=== PATIENT | female | born 1975 | race Caucasian/White ===

== ENCOUNTER 2017-12-16 11:00 | Emergency (ER) | payer SELFPAY ==
[2017-12-16 11:01] VITALS: BP 156/101; PULSE 80; RESP 12; TEMP 36.8; O2SAT 100; BMI 26.8
--- NOTE | 2017-12-16 11:17 | EKG12_ITS ---
Test Reason : CHEST PAIN Blood Pressure : / mmHG Vent. Rate : 071 BPM Atrial Rate : 071 BPM P-R Int : 140 ms QRS Dur : 078 ms QT Int : 384 ms P-R-T Axes : 077 028 050 degrees QTc Int : 417 ms Normal sinus rhythm Septal infarct , age undetermined Abnormal ECG Confirmed by MILY CALVERT, DONTAE ([id number]), film or videotape editor BERENICE ESTRELLA ([id number]) on 12/18/2017 1:25:32 PM Referred By: AMBAR Confirmed By:DONTAE MINOR MD
--- NOTE | 2017-12-16 11:21 | ED.VISSUMM ---
- ER Visit Summary Date of Service: 12/16/17 Chief Complaint: Chest pressure History of Present Illness: The patient is a 42 F who states that when she woke this morning she felt very chilled. She went ahead and went to work she developed nausea without vomiting or diarrhea. States she also has developed a chest pressure for the past 15 minutes it radiates up towards the left arm. States she feels like she just cannot catch her breath. No recent surgeries immobilization or trips. No known cancers. In 7 months ago. Physical Examination: aFebrile vital signs are stable Gen: Well-nourished well-developed Head: Normocephalic atraumatic Eyes: Perrl EOMI ENT: TMs clear no rhinorrhea moist mucous membranes Neck: Supple no lymphadenopathy no JVD nontender CVS: Regular rate rhythm no murmurs normal S1-S2 Respiratory: No distress clear to auscultation bilaterally chest nontender Abdomen: Soft nontender nondistended normal bowel sounds no masses Back: Nontender Extremity: Nontender no edema Skin: Normal color no rash Neuro: alert orientated ?3 CN II-XII intact normal strength sensation reflexes gait cerebellar Psych: Normal affect normal mood Test Results: EKG demonstrates a normal sinus rhythm at a rate of 71. CBC BMP troponin d-dimer are negative. Chest x-ray showed no acute processes. Delta troponin was obtained and negative Emergency Department Course and Treatment: TANYA score of 0. Nausea was improved with Zofran. GI cocktail did not affect her chest discomfort. At this point given the above workup I think is most likely viral syndrome. Difficult to say how the next 24 hours will progress. She will return if worsening or has a concerns. I will write prescription for Zofran. Impression: 1. Viral syndrome 2. Chest pain This note was generated with [employer] dictation software. It may contain incorrect words, spelling, and punctuation that were not noted in review of the chart prior to signing ED Disposition - Plan for ED Patient: Disposition: Home or Assisted Living Chief Complaint: Chest Pain Instructions: ED Viral Syndrome Prescriptions: Ondansetron [Zofran Odt] 4 mg PO Q6H PRN PRN #10 tab PRN Reason: Nausea Referrals: Eli Xavier MD [STAFF PHYSICIAN] -
--- NOTE | 2017-12-16 11:27 | RAD_ITS ---
STUDY: X-RAY CHEST REASON FOR EXAM: Female, 42 years old. Chest pain. TECHNIQUE: PA and lateral views of the chest. COMPARISON: Prior comparison studies are not available for review at this time. FINDINGS: Cardiac monitoring leads are present. There is hyperinflation of the lungs consistent with chronic obstructive lung disease (COPD). There is no demonstrated pleural abnormality. Normal size heart. Normal mediastinum and nettie. Normal visualized pulmonary arteries. Normal visualized aortic arch and descending thoracic aorta. Normal visualized thoracic spine. Normal visualized ribs, clavicles, and shoulders. There is no demonstrated abnormality of the visualized soft tissue structures of the upper abdomen. RAD/Chest PA and Lateral IMPRESSION: No radiographic evidence of acute cardiopulmonary disease. Electronically Signed: Marge Moeller MD at 11:54 EDT , Service support ,
[2017-12-16] MEDS: Ondansetron 4 MG/2 ML Vial IV (11:29)
[2017-12-16 11:31] LABS: Absolute Lymphocyte Count 2.44 X10^3/ul (0.83-4.51); Absolute Neutrophil Count 2.9 X10^3/uL (2.0-7.7); Basophil# 0.06 X10^3/uL; Eosinophil# 0.16 X10^3/uL; Eosinophils% 2.6 % (0-5); Hematocrit 39.1 % (37-47); Hemoglobin 12.7 g/dl (12.0-15.0); Lymphocyte # 2.44 X10^3/ul (4.0); Lymphocyte % 40.1 % (19-41); Mean Corp Hgb Conc 32.5 g/gl (32-36); Mean Corpuscular Hgb 31.1 pg (27.0-32.0); Mean Corpuscular Volume 95.6 fL (81-99); Mean Platelet Vol. 10.4 fl (6.2-12.0); Monocyte# 0.52 X10^3/uL; Monocyte% 8.6 % (0-10); Neutrophil # 2.89 X10^3/uL (2.7-7.7); Neutrophil % 47.5 % (47-70); Platelet Count 243 K/mm3 (150-450); RBC Distribution Width CV 14.9 % (11.6-14.6); RBC Distribution Width SD 51.2 fl (35.1-43.9); Red Blood Count 4.09 M/mm3 (4.2-5.4); White Blood Count 6.1 K/mm3 (4.4-11.0)
[2017-12-16 11:32] LABS: POSITIVE COUNT NO; POSITIVE DIFFERENTIAL NO; POSITIVE MORPHOLOGY NO
[2017-12-16 11:40] LABS: D-Dimer Quantitative (DVT/PE) < 0.27 FEU/ug/m (0.27-0.49)
[2017-12-16 11:47] LABS: ALB/GLOB Ratio 1.2 RATIO (0.9-2.4); AST(SGOT) 13 U/L (15-37); Alanine Aminotransfer ALT/SGPT 20 U/L (13-56); Alkaline Phosphatase 65 U/L (45-117); Anion Gap 6 (5-15); BUN 7 mg/dL (7-18); Chloride 104 mmol/L (98-107); EST Glomerular Filtration Rate 98 mL/min (>60); Est Glom Filt Rate - Afr Amer 118 mL/min (>60); Estimated Creatinine Clearance 94.21 ml/min; Globulin 3.4 g/dL (2.2-4.2); Glucose 85 mg/dL (74-106); Lipase 219 U/L (73-393); Potassium 4.2 mmol/L (3.5-5.1); Protein, Total 7.4 g/dL (6.4-8.2); Sodium Level 137 mmol/L (136-145)
[2017-12-16] MEDS: Mag Hydrox/Al Hydrox/Simeth 30 ML UDC PO (12:20)
[2017-12-16 12:23] VITALS: BP 133/82; PULSE 67; RESP 14; O2SAT 97
[2017-12-16 13:33] VITALS: PULSE 66; RESP 14; O2SAT 99
[2017-12-16 14:18] VITALS: BP 124/71; PULSE 59; RESP 16; O2SAT 98
== END 2017-12-16 14:20 | disposition home or self-care (01) ==
PROVIDERS: Emergency Provider Emergency Medicine
DX: R07.89 Other chest pain (principal); B34.9 Viral infection, unspecified; R06.00 Dyspnea, unspecified; R11.0 Nausea
CPT/HCPCS: 71046; 80053; 83690; 84484; 85025; 85379; 93005; 96374; 99285; A4216; J2405

== ENCOUNTER 2019-02-24 08:44 | Day surgery (SDC) | payer OTHER, SELFPAY ==
--- NOTE | 2019-02-22 10:39 | HP.PCM_ITS ---
History and Physical Date of Admission: 02/24/19 Tricia Greer Physician ASSISTANT DEAN OF STUDENTS H&P Signed Encounter Date: 02/16/2019 Expand All Collapse All Hide copied text Flako for details Krissy Elliott is a 44 year old female who presents for complaints of heavy irregular bleeding. Patient was just seen in the office on 02/14/2019 by nurse practitioner complaining of heavy painful bleeding. Patient states she was passing large clots. Patient reports has been taking her control pill for over 3 weeks and bleeding started prior to the inactive pills. Recommendation at this time is to proceed with hysteroscopy, D&C and Celeste endometrial ablation. I discussed with the patient that we could continue hormonal options at this time but she would be a candidate for a Celeste ablation. Patient had a previous ultrasound performed which showed a very small intramural fundal fibroid but no gross endometrial lesions. Originally patient one to try hormones due to her perimenopausal symptoms with hot flashes to help control those but at this point patient is frustrated with the bleeding would like to proceed with surgical management. Patient reports last night her bleeding was so heavy she was up all night changing pads every 1-2 hours she could not even use tampons because the bleeding was so heavy it was causing her pain tip at the tampons in place. At this time the bleeding is affecting the patient's daily life. Currently patient denies any chest pain, shortness of breath, dizziness. ? PAST MEDICAL HISTORY PAST MEDICAL HISTORY Diagnosis Date ? Kidney stone ? ? PAST SURGICAL HISTORY PAST SURGICAL HISTORY Procedure Laterality Date ? PAST SURGICAL HISTORY OF ? 2010 ? Lap appendectomy ? PAST SURGICAL HISTORY OF ? ? ? Arthroscopic surgery for torn meniscus, right knee ? PAST SURGICAL HISTORY OF ? 1998 ? Tubal ligation ? TONSILLECTOMY HX ? ? ? childhood ? FAMILY HISTORY FAMILY HISTORY Problem Relation Age of Onset ? Hypertension Mother ? ? Coronary Artery Disease Father ? ? stents then CABG in 60's ? COPD Father ? ? Hyperlipidemia Father ? ? other (Atrial Fibrillation) Father ? ? Obesity Brother ? ? with KYLAH ? other (hypothyroidism) Brother ? ? Hypertension Maternal Grandmother ? ? Coronary Artery Disease Maternal Grandfather ? ? from [place] ? Coronary Artery Disease Paternal Grandmother ? ? from [place] ? Emphysema Paternal Grandfather ? ? SOCIAL HISTORY Social History ? Tobacco Use ? Smoking status: Former Smoker ? ? Last attempt to quit: 09/08/2017 ? ? Years since quittin.4 ? Smokeless tobacco: Never Used Substance Use Topics ? Alcohol use: Not on file ? Drug use: Not on file ? Levonorgestrel-Ethinyl Estrad (AVIANE) 0.1mg - 20mcg per tablet, Take 1 tablet by mouth once daily. escitalopram oxalate (LEXAPRO) 10 mg tablet, Take 1 tablet by mouth once daily. ibuprofen (MOTRIN) 600 mg tablet, Take 1 tablet by mouth every 6 hours as needed. FOR PAIN. benzonatate (TESSALON PERLES) 100 mg capsule, Take 1-2 capsules by mouth three times daily as needed. (Patient not taking: Reported on 02/16/2019 ) albuterol sulfate (PROAIR RESPICLICK) 90 mcg/actuation aepb, Inhale 1 Inhalation as instructed every 4 hours as needed. (Patient not taking: Reported on 02/16/2019 ) norethindrone (AYGESTIN) 5 mg tablet, Take one tablet TID until bleeding stops then take one tablet BID x 2 days then one tablet daily x 5 days tiZANidine (ZANAFLEX) 4 mg tablet, Take 1 tablet by mouth every 6 hours as needed. traZODone (DESYREL) 50 mg tablet, Take 1 tablet by mouth as needed. ? No current facility-administered medications for this visit. ? Allergies As of Date: 02/16/2019 Allergen Noted Reaction DIHYDROERGOTAMINE 03/04/2018 Other: See Comments ? Fully Assessed 02/16/2019 ? ? REVIEW OF SYSTEMS Abdomen: no pain Bladder: no dysuria.. Expanded ROS: GENERAL: Negative for fever Allergies and current medication updated:Yes ? EXAM: BP 112/72 Wt 170 lb (77.1kg) LMP 02/13/2019 ? GENERAL: pleasant, female in no apparent distress HEENT: Normocephalic, atraumatic, mucus membranes moist and no lesions NECK: full range of motion DERMATOLOGY: Normal, without lesions, non-icteric and non-hirsute CHEST: Clear to auscultation Normal inspiratory effort CARDIAC: regular rate and rhythm NEURO: alert and oriented x3,exam grossly non-focal EXTREMITIES: normal ? ASSESSMENT AND PLAN: Encounter Diagnosis ? ? ICD-10-CM ? 1. Abnormal uterine bleeding (AUB) N93.9 ? ? Discussed all options including continued hormonal therapy but at this time due to the heavy bleeding and do recommend proceeding with surgical intervention with a hysteroscopy D&C and Celeste ablation. Previous in vitro biopsy was benign. ? 2. Pt has been counseled on risks/benefits and alternatives of surgery including but not limited to anesthesia, bleeding, infection, uterine perforation with subsequent injury to pelvic structures including bowel, bladder, and vessels. Pt wishes to proceed with surgery at this time. 3. Post op Motrin ordered ? ? Tricia Lyon MD ?8:39 AM Office Visit on 02/16/2019
[2019-02-24] VITALS (8 sets, daily range): BP systolic 106–123; BP diastolic 75–84; PULSE 52–73; RESP 14–16; TEMP 36.4–37.1; O2SAT 95–100; BMI 29.3
[2019-02-24 09:25] LABS: Internal QC Validated? YES +Cl - CLEAR BKGD; Pregnancy, Urine Negative Negative
[2019-02-24] MEDS: Lactated Ringers 1,000 ML 100 ML IV ×2 (09:27→11:37)
[2019-02-24 09:32] LABS: Hematocrit 35.8 % (37-47); Hemoglobin 11.5 g/dL (12.0-15.0); Mean Corp Hgb Conc 32.1 g/dL (32-36); Mean Corpuscular Hgb 32.4 pg (27.0-32.0); Mean Corpuscular Volume 100.8 fL (81-99); Mean Platelet Vol. 9.7 fl (6.2-12.0); Platelet Count 268 K/mm3 (150-450); RBC Distribution Width CV 12.6 % (11.6-14.6); RBC Distribution Width SD 47.1 fl (35.1-43.9); Red Blood Count 3.55 M/mm3 (4.2-5.4); White Blood Count 5.1 K/mm3 (4.4-11.0)
--- NOTE | 2019-02-24 10:35 | EMB_PTH ---
PATIENT: HARI MODI [place] [facility] [place][id number] AGE/SX: 44/F ROOM: RE02/24/[address]: Dr. Tricia Lyon, MDDOB: 1975 BED: DIS: 02/24/2019 SPEC #: [id number] RECD: 02/24/19 12:18 STATUS: ROSA REChi #: [id number] DAVID: 02/24/19 10:[address]: Tricia Lyon DEPT: SURGICAL PATHOLOGY RECD BY: Manny Cervantes ENTERED: 02/24/19 13:07 SP TYPE: ENDOM BX/C OTHR DR: Dr. Geri Pradhan MD Tissues: Endometrium, NOS Procedures: Surgery Specimen Level IV HEADER OPERATION: Hysteroscopy, D & C, Celeste PRE-OP DIAGNOSIS: Abnormal uterine bleeding TISSUE SUBMITTED: Endometrial curettings and polyp MICROSCOPIC DIAGNOSIS Endometrial curettings and polyp: Weakly proliferative endometrium. Fragments of myometrium. Fragments of benign ecto- and endocervical epithelium. See comment. SELINA:ulysses 02/25/19 COMMENT A few of the fragments have polypoid appearance, may represent fragments of polyp. MICROSCOPIC DESCRIPTION Slides are reviewed. GROSS DESCRIPTION Received in fixative is one container labeled with the patient's name and designated endometrial curettings and polyp. The specimen consists of multiple fragments of hemorrhagic soft tissue that in aggregate measure 3 x 2.5 x 0.3 cm. The entire specimen is submitted in one cassette. / SELINA:ulysses 02/24/19 TC:5 CPT: 52607
--- NOTE | 2019-02-24 11:20 | PCM.OPRPT ---
Report of Operation Date of Procedure: 02/24/19 Pre-Operative Diagnosis: AUB Post-Operative Diagnosis: same, Endometrial polyp Description of Surgical Findings:: Small endometrial polyp noted from Right lateral uterine wall- removed prior to ablation. Ablation performed without difficulty. Type of Anesthesia:: MAC Special Medications: none Specimen's removed: endometrial curettings and endometrial polyp Drains: none Estimated Blood Loss (mL): 10 Fluids Replaced: 800 Description of Procedure: After informed consent was obtained patient taken to the operating room she is placed in supine position she is given anesthesia simply self insert she is prepped draped normal sterile fashion. Bladder was drained prior to the start of the procedure. At this time the weighted speculum was placed the posterior fornix of the vagina then a single-tooth tenaculum was used to grasp the anterior lip of the cervix. At this time the uterus was sounded to approximately 8cm the endocervical canal sounded to 4cm. Next cervix was dilated in incremental fashion. Once adequate dilatation was achieved the hysteroscope was inserted using normal saline as distention medium. On hysteroscopy there were no gross abnormalities. Both tubal ostia were visualized. At this time sharp curettaas a small endometrial polyp noted from right lateral aspect. Endometrial curettage was performed which yielded small amount of endometrial tissue and polyp. tissue will be sent to pathology for evaluation. At this time the Celeste device was opened. The Celeste was set at 4 cm. The device was activated. Prior to activation the field test was performed and cavity was intact. The device was then fired and activated for 120 seconds. Once the 120 seconds was completed the device was removed intact and the tenaculum was removed. Good hemostasis was appreciated. Weighted speculum was removed. Vaginal sweep was performed is negative. There were no complications. Anticipated normal postoperative course for this patient. Instrument and lap count were correct ?2. Grafts/Implants Used: none - Complications none - Admit VTE Documentation VTE Present on Admission: Yes VTE Mechan Device Prophylaxis: SCD's VTE Pharm Prophylaxis ordered?: No
--- NOTE | 2019-02-24 11:25 | DCINST_ITS ---
Discharge Diet: No Restrictions Discharge Activity: Return to Normal Activity, May Shower, May Take a Tub Bath - in 2 weeks. Allergies/Adverse Reactions: Allergies dihydroergotamine Allergy (Verified 02/24/19 09:10) Chest tightness DAG Allergy (Uncoded 02/24/19 09:10) Chest tightness Medications to take at Discharge Escitalopram Oxalate [Lexapro] 10 mg PO DAILY 02/21/19 Tizanidine HCl [Zanaflex] 4 mg PO Q8H PRN 02/21/19 Primary Care Physician: Geri Pradhan MD [Primary Care Provider] - Test Results: Test results from this visit will be discussed in further detail at your follow- up appointment, if applicable.
[2019-02-24] MEDS: HYDROcodone Bitartrate/Apap 5/325 Tablet PO (12:22)
== END 2019-02-24 12:49 | disposition home or self-care (01) ==
LOC: SDC 08:48 → AC 09:07
PROVIDERS: Family Provider Internal Medicine; PCP Internal Medicine; Referring Provider Obstetrics & Gynecology; Visit Provider Obstetrics & Gynecology
PROC: 0U5B8ZZ Destruction of Endometrium, Via Natural or Artificial Opening Endoscopic (ICD-10-PCS; CPT 58558; principal; 2019-02-24 10:20)
DX: N84.0 Polyp of corpus uteri (principal); N93.9 Abnormal uterine and vaginal bleeding, unspecified; Z87.891 Personal history of nicotine dependence; Z87.442 Personal history of urinary calculi
CPT/HCPCS: 58558; 36415; 81025; 85027; 88305; J7120; J2405

== ENCOUNTER 2020-02-02 14:26 | Observation (INO) | payer OTHER, SELFPAY ==
[2019-02-24 09:11] VITALS: BMI 29.3
--- NOTE | 2020-01-26 09:18 | EKG12_ITS ---
Test Reason : PRE OP Blood Pressure : / mmHG Vent. Rate : 080 BPM Atrial Rate : 080 BPM P-R Int : 146 ms QRS Dur : 076 ms QT Int : 366 ms P-R-T Axes : 069 002 028 degrees QTc Int : 422 ms Normal sinus rhythm Normal ECG Confirmed by JEFF CALVERT, ELAINA ([id number]), editor greeting card YENI TONEY ([id number]) on 01/30/2020 1:02:10 PM Referred By: Tricia Lyon Confirmed By:ELAINA AGUILAR MD
[2020-01-26 10:24] LABS: Hematocrit 41.1 % (37-47); Hemoglobin 13.3 g/dL (12.0-15.0); Mean Corp Hgb Conc 32.4 g/dL (32-36); Mean Corpuscular Hgb 32.4 pg (27.0-32.0); Mean Corpuscular Volume 100.2 fL (81-99); Mean Platelet Vol. 9.8 fl (6.2-12.0); Platelet Count 264 K/mm3 (150-450); RBC Distribution Width CV 12.9 % (11.6-14.6); RBC Distribution Width SD 47.4 fl (35.1-43.9); White Blood Count 5.1 K/mm3 (4.4-11.0)
[2020-01-26 10:46] LABS: Magnesium 2.1 mg/dL (1.6-2.6)
[2020-01-26 10:49] LABS: Anion Gap 5 (5-15); BUN 6 mg/dL (7-18); BUN/Creat Ratio 7.6 RATIO (10-20); Calcium,Total 9.1 mg/dL (8.5-10.1); Chloride 105 mmol/L (98-107); Creatinine, Serum 0.79 mg/dL (0.55-1.02); EST Glomerular Filtration Rate 84 mL/min (>60); Est Glom Filt Rate - Afr Amer 102 mL/min (>60); Glucose 85 mg/dL (74-106); Potassium 4.1 mmol/L (3.5-5.1); Sodium Level 139 mmol/L (136-145)
--- NOTE | 2020-01-31 09:48 | PCM.HP.BLA ---
History and Physical Date of Admission: 01/31/20 Tricia Greer Physician Specialty: GAMBLING MONITOR H&P Signed Encounter Date: 01/16/2020 Nola Eastone copied text Flako for details Pre-Op History and Physical ? HPI: The patient is a 45 year old female presenting for pre-operative visit. She is scheduled for TLH, Bilateral salpingectomy, cystoscopy, for AUB, Dysmenorrhea, pelvic pain, s/p endometrial ablation, suspect adenomyosis on 02/02/20. Procedure discussed along with risks, benefits and complications. Other alternatives discussed for management. Consent form signed? Yes. ? ? PAST MEDICAL HISTORY PAST MEDICAL HISTORY Diagnosis Date ? Kidney stone ? ? ? PAST SURGICAL HISTORY PAST SURGICAL HISTORY Procedure Laterality Date ? HYSTEROSCOPY, DIAGNOSTIC (SEPARATE ? 02/24/2019 ? Hysteroscopy D&C at [facility]-Dr. Greer ? PAST SURGICAL HISTORY OF ? 2010 ? Lap appendectomy ? PAST SURGICAL HISTORY OF ? ? ? Arthroscopic surgery for torn meniscus, right knee ? PAST SURGICAL HISTORY OF ? 1998 ? Tubal ligation ? THERMAL ENDOMETRIAL ABLATION ? 02/2019 ? Celeste- Dr. Greer ? TONSILLECTOMY HX ? ? ? childhood ? ? ? CURRENT MEDICATIONS Current Outpatient Medications Medication Sig Dispense Refill ? ibuprofen (MOTRIN) 200 mg tablet Take 200 mg by mouth every 6 hours as needed. ? ? ? traZODone (DESYREL) 50 mg tablet Take 1 tablet by mouth as needed. ? ? ? No current facility-administered medications for this visit. ? ? ALLERGIES: Dihydroergotamine ? PERSONAL HISTORY: SOCIAL HISTORY Social History ? Tobacco Use ? Smoking status: Former Smoker ? ? Quit date: 09/08/2017 ? ? Years since quittin.3 ? Smokeless tobacco: Never Used Substance Use Topics ? Alcohol use: Not on file ? Drug use: Not on file ? FAMILY HISTORY: FAMILY HISTORY FAMILY HISTORY Problem Relation Age of Onset ? Hypertension Mother ? ? Coronary Artery Disease Father ? ? stents then CABG in 60's ? COPD Father ? ? Hyperlipidemia Father ? ? other (Atrial Fibrillation) Father ? ? Obesity Brother ? ? with KYLAH ? other (hypothyroidism) Brother ? ? Hypertension Maternal Grandmother ? ? Coronary Artery Disease Maternal Grandfather ? ? from [place] ? Coronary Artery Disease Paternal Grandmother ? ? from [place] ? Emphysema Paternal Grandfather ? ? ? REVIEW OF SYMPTOMS: negative except as noted above PHYSICAL EXAMINATION: ? VITALS: Blood pressure 112/74, pulse 72, resp. rate 16, height 5' 5 (1.651 m), weight 189 lb (85.7 kg), last menstrual period 02/13/2019. ? GENERAL: The patient is well nourished, well hydrated in no acute distress. , The patient is oriented to time, place, and person. NECK: Full range of motion GENITALIA: deferred WET PREP: Not indicated Neuro: alert and oriented x 3 ? IMPRESSION: 45 yo s/p ablation with AUB, dysmenorrhea, pelvic pain suspect adenomyosis ? PLAN: TLH, B/l salpingectomy, cystoscopy. ? ERAS protocol reviewed Post op meds given Pt has been counseled on risks/benefits and alternatives of surgery including but not limited to anesthesia, bleeding, infection, injury to pelvic structures including bowel, bladder, ureters and vessels. Pt wishes to proceed with surgery at this time. ? Covid testing reviewed ? RESULT: Uterus size: 7.4 x 4.8 x 3.9 cm ?? ? -Orientation: Anteverted ?? ? -Myometrium: Coarsened myometrium with a hypoechoic mass within the anterior fundus slightly to the right of midline measuring 12 x 11 x 11 mm. ?? ? -Endometrial echo complex: 4.3 mm transvaginally at the fundus. ?? ? -Cervix: normal Right ovary: 2.7 x 2.5 x 2.0 cm. ?? Normal sonographic appearance. There are normal follicular changes within involuting follicle. Arterial and venous vascular flow is identified. Left ovary: 2.8 x 2.6 x 1.2 cm. ?? Normal sonographic appearance. There are normal follicular changes. Arterial and venous vascular flow is identified. Free fluid: None ? ? I have reviewed and updated past medical and surgical history, medications and allergies Tricia Greer MD ?9:18 AM Office Visit on 01/16/2020 Revision History
[2020-02-02] VITALS (17 sets, daily range): BP systolic 100–131; BP diastolic 61–81; PULSE 57–96; RESP 16; TEMP 36.1–37.5; O2SAT 94–100; BMI 31.5
[2020-02-02 07:25] LABS: Internal QC Validated? YES +Cl - CLEAR BKGD; Pregnancy, Urine Negative Negative
[2020-02-02] MEDS: Gabapentin 600 MG Tablet PO (07:28)
[2020-02-02] MEDS: Acetaminophen 500 MG Tablet 1000 MG PO ×3 (07:28→23:00)
[2020-02-02] MEDS: Phenazopyridine 95 MG Tablet 190 MG PO (07:28)
[2020-02-02] MEDS: Celecoxib 200 MG Capsule 400 MG PO (07:28)
[2020-02-02] MEDS: Enoxaparin 40 MG/0.4 ML Syringe SC (07:29)
[2020-02-02] MEDS: Scopolamine 1mg/72hr Patch 1 PATCH TRANSDERM. (07:29)
[2020-02-02] MEDS: Lactated Ringers 1,000 ML 40 ML IV ×2 (07:30→10:16)
[2020-02-02 08:01] LABS: Bedside Glucose 108 mg/dL (70-110)
--- NOTE | 2020-02-02 08:30 | HYST_PTH ---
PATIENT: HARI MODI LOC: [facility] U#:[id number] AGE/SX: 45/F ROOM: [facility] RE02/02/[address]: Dr. Tricia Lyon, MDDOB: 1975 BED: 1 DIS: 02/04/2020 SPEC #: [id number] RECD: 02/02/20 13:05 STATUS: ROSA HEENA #: [id number] DAVID: 02/02/20 08:[address]: Tricia Lyon DEPT: SURGICAL PATHOLOGY RECD BY: Megha Olsen ENTERED: 02/02/20 13:35 SP TYPE: HYSTERECT OTHR DR: Dr. Geri Pradhan MD Tissues: Uterus, NOS Procedures: Surgery Specimen Level V HEADER OPERATION: Hysterectomy, TLH, salpingectomy, cysto PRE-OP DIAGNOSIS: Dysmenorrhea, pelvic pain TISSUE SUBMITTED: Uterus, cervix, bilateral fallopian tubes MICROSCOPIC DIAGNOSIS Uterus, cervix and bilateral fallopian tubes, hysterectomy and bilateral salpingectomy: Cervix - no pathologic diagnosis. Endometrium - extensive fibrosis consistent with previous endometrial ablation. Myometrium - no pathologic diagnosis. Bilateral fallopian tubes - no pathologic diagnosis. SELINA:ulysses 02/03/20 COMMENT Please make reference to previous specimen ([id number]) endometrial curettings and polyp with diagnosis of weakly proliferative endometrium. MICROSCOPIC DESCRIPTION Slides are reviewed. GROSS DESCRIPTION Received in fixative is one container labeled with the patient's name and designated uterus, cervix and bilateral fallopian tubes. The specimen consists of a hysterectomy specimen consisting of uterus with cervix and detached bilateral fallopian tubes. The uterus with cervix weighs 80 gm and measures 7.5 x 6 x 4 cm. A focal area of defect is noted at the posterior surface of the uterus. The serosal surface is york, glistening. The ectocervical mucosa is unremarkable. The external os is oval and patulous in contour. The endocervical canal measures 2.5 cm in length and the endocervical mucosa is york, glistening and unremarkable. The endometrial cavity is narrow and elongated and measures 3.5 cm in length and up to 0.5 cm in width. A focal area of fibrosis is noted in the endometrium. No mass lesion is identified. The endometrium measures 0.1 cm in thickness. Sections of the uterine wall do not reveal any mass lesion and it measures up to 2 cm in thickness. The fallopian tubes are not identified as right or left and measures 4.5 cm in length and 0.5 cm in diameter and 6.5 cm in length and 0.5 cm in diameter. The fimbrial end is identified. The proximal portion of both fallopian tubes show a Filshie clip which appear intact. Sections reveal unremarkable cut surfaces. Crew Caller sections are submitted in eight cassettes as follows: 1 - anterior cervix, 2 - posterior cervix, 3 & 4 - anterior uterine wall, 5 & 6 - posterior uterine wall, 7 & 8 - bilateral fallopian tubes with each cassette containing one fallopian tube. / SJ:rg 02/02/20 TC:5 CPT: 45248
[2020-02-02] MEDS: Cefazolin 2 GM in 0.9% Normal Saline 100 ML IV (09:07)
[2020-02-02] MEDS: dexAMETHasone 10 MG/ML Vial 8 MG IV (09:40)
[2020-02-02] MEDS: Bupivacaine Mpf 0.5% 30 ML VIAL (09:40)
--- NOTE | 2020-02-02 10:03 | PCM.OPRPT ---
Problem List (1) Abnormal uterine bleeding (AUB) Status: Acute (2) Dysmenorrhea Status: Acute Report of Operation Date of Procedure: 02/02/20 Pre-Operative Diagnosis: Abnormal uterine bleeding. Dysmenorrhea Post-Operative Diagnosis: Same Surgery/Procedure Performed:: Diagnostic laparoscopy with visualization of sigmoid colon Type of Anesthesia:: General Description of Procedure: This is a 45 yo s/p ablation with AUB, dysmenorrhea, pelvic pain suspect adenomyosis she was undergoing a TLH, B/l salpingectomy, cystoscopy. During the process of their intra-abdominal dissection there was an area of the sigmoid colon in which Dr. Gardner and Dr. Greer had a question of whether there was a serosal injury to the sigmoid colon. Upon visualization of this I thought that this was just traumatized epiploic fat and did not represent any serosal injury whatsoever. I did not see any abnormal bleeding in the pelvis Visualization of the sigmoid colon was easily accomplished and no injury was identified. I then left the room. - Admit VTE Documentation VTE Present on Admission: No VTE Mechan Device Prophylaxis: SCD's VTE Pharm Prophylaxis ordered?: No Reason prophylaxis not ordered:: Treatment Not Indicated
--- NOTE | 2020-02-02 11:17 | PCM.OPRPT ---
Report of Operation Date of Procedure: 02/02/20 - start 929 end time 1126 Pre-Operative Diagnosis: AUB, Dysmenorrhea, history of endometrial ablation Post-Operative Diagnosis: same Surgery/Procedure Performed:: LAVH, Bilateral salpingectomy, Cystoscopy, lysis of adhesions Description of Surgical Findings:: Normal tubes, ovaries and Uterus. bilateral filshie clips present. Hernia through previous LLQ port site. Reduced. general surgery called to look at edge of serosa on Descending colon to make sure there was no interruption in serosa- Dr. Cooper agreed with finding of no injury to colon. supervisor electric: Kaela Gardner Type of Anesthesia:: General Special Medications: 1% lidocaine with Ephedirne and 0.5% Marcaine Specimen's removed: uterus, cervix, bialteral fallopain tubes Drains: none Estimated Blood Loss (mL): 50 Fluids Replaced: 1500 Description of Procedure: Patient take to OR and prepped and draped in usual sterile fashion in dorsal lithotomy position with her arms tucked in a neurologically safe and neutral position. The uterus sounded to 8cm. The acorn uterine manipulator and sanchez were placed. Attention was turned to the abdomen. All port sites were infiltrated with 0.5% marcaine before the incisions were made. The anterior abdominal wall was tented up with towel clamps and using a direct entry approach a 5 mm infraumbilical port was placed. Intraperitoneal placement was confirmed with the laparoscope and the pneumoperitoneum was created. The patient was placed in Trendelenburg and 5 mm right and left lower quadrant ports were placed under direct visualization. Hernia through previous LLQ was appreciated- Omentum was taken down. General surgery Dr. Cooper called to inspect area of descending colon - Dr. Cooper agreed there was no injury to Descending colon. once the adhesions were taken down in LLQ port area- The bowel was swept away. Ovaries appeared normal. The mesosalpinx starting at fibriated end were grasped, clamped, sealed and transected with the Ligasure. The round ligaments were divided. The anterior peritoneum was dissected down to create the bladder flap with blunt dissection and the LigaSure. The uterine arteries were isolated, clamped, sealed and cut. There was minimal back bleeding from the uterus. Attention was turned to the vaginal portion of the case. The anterior vagina was infiltrated w/ lidocaine with dilute epinephrine. An incision was made over the anterior vagina and the anterior colpotomy incision was made with blunt and sharp dissection. The lower vagina was clamped, transected and suture ligated. A second pedicle containing the peritoneum was secured with Xochitl clamps, cut and suture ligated. The uterus was brought through the anterior colpotomy incision and the uterosacral ligaments were clamped, cut and suture ligated. The pedicles were examined and were suture ligated. The specimen was handed off. The cuff was closed with interrupted 0-vicryl figure of 8 sutures. Cystoscopy was performed- bilateral ureteral jets noted and Bladder intact. The pneumoperitoneum was recreated and the cuff was evaluated. small oozing noted on cuff. Extra stitch placed from below - area still oozing- Monopolor hook used to cauterize area and a hemolock clamp was placed on posterior cuff midline at this time cuff and pedicles were hemostatic. Nghia placed over cuff. The skin incisions were closed with skin glue and 3-0 monocryl. The vaginal sweep was completed by me. Grafts/Implants Used: none Grafts/Implants Used: hemolock clip x 1 - Complications none - Admit VTE Documentation VTE Present on Admission: Yes VTE Mechan Device Prophylaxis: SCD's VTE Pharm Prophylaxis ordered?: Yes
--- NOTE | 2020-02-02 11:32 | DCINST_ITS ---
Discharge Diet: No Restrictions Discharge Activity: Return to Normal Activity, May Not Drive - while taking narcotic pain medications., May Shower May shower in (days): 1 May resume sexual activity in: 6-8 weeks Lifting Restrictions: 20 Call your doctor if your incision/area has: Continuous Slow Oozing, Sudden Increased Bleeding, Increased Pain/ Swelling, Increased Redness, Foul Smelling Discharge Call your doctor if you observe: Fever of 101 or Higher, Inability to urinate, Inability to have a bowel movement, Using more than one pad per hour Cleanse incision/area with: - - you have skin glue over incision sites- do not pick off. may let soap and water run over incision sites and dab dry. Allergies/Adverse Reactions: Allergies dihydroergotamine Allergy (Verified 01/25/20 09:55) Chest tightness DAG Allergy (Uncoded 01/25/20 09:55) Chest tightness Medications to take at Discharge NK 01/25/20 Primary Care Physician: Geri Pradhan MD [Primary Care Provider] - Test Results: Test results from this visit will be discussed in further detail at your follow- up appointment, if applicable. Please Follow Up With: Tricia Lyon MD When: 2 weeks
[2020-02-02] MEDS: Ketorolac 30 MG/ML Syringe IV ×3 (13:23→23:00)
[2020-02-02] MEDS: Ondansetron 4 MG/2 ML Vial IV (13:23)
[2020-02-02] MEDS: Lactated Ringers 1,000 ML 70 ML IV (13:37)
[2020-02-02] MEDS: oxyCODONE 5 MG Tablet PO ×2 (14:46→20:43)
[2020-02-02 17:46] LABS: Hematocrit 36.9 % (37-47); Hemoglobin 11.7 g/dL (12.0-15.0); Mean Corp Hgb Conc 31.7 g/dL (32-36); Mean Corpuscular Hgb 32.1 pg (27.0-32.0); Mean Corpuscular Volume 101.4 fL (81-99); Platelet Count 245 K/mm3 (150-450); RBC Distribution Width CV 12.9 % (11.6-14.6); Red Blood Count 3.64 M/mm3 (4.2-5.4); White Blood Count 14.5 K/mm3 (4.4-11.0)
[2020-02-02] MEDS: Docusate Sodium 100 MG Capsule PO (23:00)
[2020-02-03] VITALS (11 sets, daily range): BP systolic 103–136; BP diastolic 56–80; PULSE 55–71; RESP 16; TEMP 36.2–37; O2SAT 96–99
[2020-02-03] MEDS: oxyCODONE 5 MG Tablet PO ×4 (02:24→21:47)
[2020-02-03] MEDS: Acetaminophen 500 MG Tablet 1000 MG PO ×3 (06:21→18:38)
[2020-02-03] MEDS: Ketorolac 30 MG/ML Syringe IV ×3 (06:21→18:38)
[2020-02-03 07:02] LABS: Absolute Lymphocyte Count 1.42 X10^3/uL (0.83-4.51); Absolute Neutrophil Count 11.2 X10^3/uL (2.0-7.7); Basophil# 0.01 X10^3/uL; Basophil% 0.1 % (0-1); Hematocrit 31.5 % (37-47); Hemoglobin 9.8 g/dL (12.0-15.0); Lymphocyte # 1.42 X10^3/ul (4.0); Lymphocyte % 10.5 % (19-41); Mean Corp Hgb Conc 31.1 g/dL (32-36); Mean Corpuscular Hgb 31.9 pg (27.0-32.0); Mean Corpuscular Volume 102.6 fL (81-99); Mean Platelet Vol. 9.9 fl (6.2-12.0); Monocyte% 5.9 % (0-10); NRBC Flagged by Analyzer 0 % (0-5); Neutrophil # 11.18 X10^3/uL (2.7-7.7); Neutrophil % 82.9 % (47-70); Platelet Count 236 K/mm3 (150-450); RBC Distribution Width CV 12.9 % (11.6-14.6); RBC Distribution Width SD 47.9 fl (35.1-43.9); Red Blood Count 3.07 M/mm3 (4.2-5.4); White Blood Count 13.5 K/mm3 (4.4-11.0)
--- NOTE | 2020-02-03 07:56 | PN.OBGYN_ITS ---
Patient Problems: Active and Suspected Problems Abnormal uterine bleeding (AUB) (Acute) Dysmenorrhea (Acute) Subjective: pt seen at bedside, doing well. pt reports some gas and abdominal discomfort. pt reports is ambulating well, denies dizziness when walking. Denies CP, SOB. Pt reports small amount of vaginal bleeding overnight and only spotting this morning. Not passing flatus yet but feels she will soon. pt is voiding w/o difficulty. - Physical Exam Vitals/I&O's: Vital Signs Temp Pulse Resp BP Pulse Ox 97.6 F L 63 16 126/80 H 96 02/03/20 06:25 02/03/20 06:25 02/03/20 06:25 02/03/20 06:25 02/03/20 06:25 Oxygen Flow Rate (L/min) 6 Oxygen Delivery Method Room Air Weight: 85.9 kg Body Mass Index (BMI) 31.5 Intake and Output for Last 24 Hours 02/01/20 02/02/20 02/03/20 23:59 23:59 23:59 Intake Total 3015 / 3015 1000 / 1000 Output Total 310 / 310 1900 / 1900 Balance 2705 / 2705 -900 / -900 General: Alert, Oriented x3 Abdomen: Soft, - - appropriately tender, no rebound, no guarding. +BS Neurological: Cranial nerves II-XII grossly intact Psych/Mental Status: Normal Affect Comment: minimal spotting on pad Laboratory Results 02/02/20 07:30: POC Glucose 108 02/02/20 17:18: WBC 14.5 H, RBC 3.64 L, Hgb 11.7 L, Hct 36.9 L, MCV 101.4 H, MCH 32.1 H, MCHC 31.7 L, RDW Std Deviation 48.0 H, RDW Coeff of Chet 12.9, Plt Count 245, MPV 10.0 02/03/20 06:37: WBC 13.5 H, RBC 3.07 L, Hgb 9.8 L, Hct 31.5 L, MCV 102.6 H, MCH 31.9, MCHC 31.1 L, RDW Std Deviation 47.9 H, RDW Coeff of Chet 12.9, Plt Count 23 6, MPV 9.9, Immature Gran % (Auto) 0.600, Neut % (Auto) 82.9 H, Lymph % (Auto) 10.5 L, Jay % (Auto) 5.9, Eos % (Auto) 0.0, Baso % (Auto) 0.1, Absolute Neuts (auto) 11.2 H, Absolute Lymphs (auto) 1.42, Nucleated RBC % 0 Current Medications Acetaminophen (Acetaminophen 500 Mg Tablet) 1,000 mg PO Q6 [facility] Last Admin: 02/03/20 06:21 Dose: 1,000 mg Documented by: Docusate Sodium (Docusate Sodium 100 Mg Capsule) 100 mg PO BID [facility] Last Admin: 02/02/20 23:00 Dose: 100 mg Documented by: Ketorolac Tromethamine (Ketorolac 30 Mg/Ml Syringe) 30 mg IV Q6 [facility] Stop: 02/03/20 18:01 Last Admin: 02/03/20 06:21 Dose: 30 mg Documented by: Magnesium Chloride (Magnesium Chloride 64 Mg Delay Rel.Tablet) 128 mg PO DAILY PRN PRN PRN Reason: Constipation Nutritional Formula (Lactose Free) (Ensure Enlive 120 Ml Liquid) 120 ml PO TIDCM [facility] Last Admin: 02/02/20 18:39 Dose: Not Given Documented by: Ondansetron HCl (Ondansetron Odt 4 Mg Tablet) 4 mg PO Q6H PRN PRN PRN Reason: NAUSEA Oxycodone HCl (Oxycodone 5 Mg Tablet) 5 - 10 mg PO Q4H PRN PRN PRN Reason: Pain Score 4-10 Last Admin: 02/03/20 02:24 Dose: 10 mg Documented by: Sodium Chloride (0.9% Saline Lock 10 Ml Syringe) 10 - 40 ml IV UD PRN PRN Reason: SALINE FLUSH Medical Necessity - Tobacco Use Smoking Status: Former smoker Tobacco Use: Non-smoker Assessment/Plan All Active Problems Abnormal uterine bleeding (AUB) (Acute) Dysmenorrhea (Acute) POD#1 s/p LAVH, Bilateral salpingectomy, Cystoscopy, RUTH 1) Anemia s/p surgery- reviewed with patient that she had some small oozing from vaginal cuff and when closed it appeared to be hemostatic. Will repeat one more CBC at 10am if stable she will be able to go home but if trending down may consider intervention. 2) Clears only now until CBC results at 10am 3) ambulation 4) pain mgmt 5) possible dc home today after CBC results and tolerating regular diet. 6) will start Iron supplementation
[2020-02-03 10:46] LABS: Hematocrit 30.1 % (37-47); Hemoglobin 9.3 g/dL (12.0-15.0); Mean Corp Hgb Conc 30.9 g/dL (32-36); Mean Corpuscular Volume 103.4 fL (81-99); Mean Platelet Vol. 10.3 fl (6.2-12.0); Platelet Count 219 K/mm3 (150-450); RBC Distribution Width SD 49.1 fl (35.1-43.9); Red Blood Count 2.91 M/mm3 (4.2-5.4)
[2020-02-03 11:16] LABS: Anion Gap 6 (5-15); BUN 8 mg/dL (7-18); BUN/Creat Ratio 10.4 RATIO (10-20); Chloride 106 mmol/L (98-107); Creatinine, Serum 0.77 mg/dL (0.55-1.02); EST Glomerular Filtration Rate 86 mL/min (>60); Est Glom Filt Rate - Afr Amer 104 mL/min (>60); Estimated Creatinine Clearance 83.02 ml/min; Glucose 123 mg/dL (74-106); Potassium 3.9 mmol/L (3.5-5.1); Sodium Level 139 mmol/L (136-145)
[2020-02-03] MEDS: Docusate Sodium 100 MG Capsule PO ×2 (12:55→21:47)
[2020-02-03] MEDS: Ferrous Sulfate 325 MG Tablet PO ×2 (13:01→16:37)
[2020-02-03 14:31] LABS: Hematocrit 27.7 % (37-47); Hemoglobin 8.8 g/dL (12.0-15.0); Mean Corp Hgb Conc 31.8 g/dL (32-36); Mean Corpuscular Hgb 32.7 pg (27.0-32.0); Platelet Count 206 K/mm3 (150-450); RBC Distribution Width SD 49.1 fl (35.1-43.9); Red Blood Count 2.69 M/mm3 (4.2-5.4); White Blood Count 10.3 K/mm3 (4.4-11.0)
[2020-02-03] MEDS: 0.9% Saline Lock 10 ML Syringe IV (18:39)
[2020-02-03 22:36] LABS: Hematocrit 30.4 % (37-47); Hemoglobin 9.5 g/dL (12.0-15.0); Mean Corp Hgb Conc 31.3 g/dL (32-36); Mean Corpuscular Hgb 31.6 pg (27.0-32.0); Mean Platelet Vol. 10.1 fl (6.2-12.0); Platelet Count 181 K/mm3 (150-450); RBC Distribution Width CV 14.1 % (11.6-14.6); RBC Distribution Width SD 52.4 fl (35.1-43.9); Red Blood Count 3.01 M/mm3 (4.2-5.4); White Blood Count 7.9 K/mm3 (4.4-11.0)
[2020-02-04] MEDS: Acetaminophen 500 MG Tablet 1000 MG PO ×2 (00:01→06:41)
[2020-02-04 03:00] VITALS: BP 127/69; PULSE 64; RESP 16; TEMP 37; O2SAT 93
[2020-02-04] MEDS: oxyCODONE 5 MG Tablet PO ×2 (03:20→08:43)
[2020-02-04 09:00] VITALS: BP 143/94; PULSE 65; RESP 16; TEMP 36.5; O2SAT 97
[2020-02-04] MEDS: Docusate Sodium 100 MG Capsule PO (09:03)
[2020-02-04 09:09] VITALS: O2SAT 97
[2020-02-04 09:09] LABS: Hematocrit 31.8 % (37-47); Hemoglobin 9.9 g/dL (12.0-15.0); Mean Corp Hgb Conc 31.1 g/dL (32-36); Mean Corpuscular Hgb 31.6 pg (27.0-32.0); Mean Corpuscular Volume 101.6 fL (81-99); Mean Platelet Vol. 10.2 fl (6.2-12.0); Platelet Count 181 K/mm3 (150-450); RBC Distribution Width CV 14.3 % (11.6-14.6); RBC Distribution Width SD 53.8 fl (35.1-43.9); Red Blood Count 3.13 M/mm3 (4.2-5.4); White Blood Count 8.2 K/mm3 (4.4-11.0)
[2020-02-04 11:00] VITALS: PULSE 88
--- NOTE | 2020-02-04 11:42 | PN.OBGYN_ITS ---
Patient Problems: Active and Suspected Problems Abnormal uterine bleeding (AUB) (Acute) Dysmenorrhea (Acute) Subjective: pain well controlled, minimal vaginal spotting. harsh. regular diet. + flatus, no BM. Urinating w/o difficulty. - Physical Exam Vitals/I&O's: Vital Signs Temp Pulse Resp BP Pulse Ox 97.7 F L 65 16 143/94 H 97 02/04/20 09:00 02/04/20 09:00 02/04/20 09:00 02/04/20 09:00 02/04/20 09:09 Oxygen Flow Rate (L/min) 96 Oxygen Delivery Method Room Air Weight: 85.9 kg Body Mass Index (BMI) 31.5 Intake and Output for Last 24 Hours 02/02/20 02/03/20 02/04/20 23:59 23:59 23:59 Intake Total 3015 / 3015 2300 / 2300 Output Total 310 / 310 3800 / 4600 1350 / 1350 Balance 2705 / 2705 -1500 / -2300 -1350 / -1350 General: Alert, Cooperative, No apparent distress Abdomen: Soft, Distended - moderately, Tender - appropriately Skin: Incision - clean, dry and intact incisions with skin glue Laboratory Results 01/26/20 09:50: Blood Type Cancelled, A1 Antigen Typing Cancelled, Rho(D) Type Cancelled, Antibody Screen Cancelled, Crossmatch See Detail 02/03/20 14:22: WBC 10.3, RBC 2.69 L, Hgb 8.8 L, Hct 27.7 L, MCV 103.0 H, MCH 32.7 H, MCHC 31.8 L, RDW Std Deviation 49.1 H, RDW Coeff of Chet 13.0, Plt Count 206, MPV 10.0 02/03/20 22:30: WBC 7.9, RBC 3.01 L, Hgb 9.5 L, Hct 30.4 L, MCV 101.0 H, MCH 31.6, MCHC 31.3 L, RDW Std Deviation 52.4 H, RDW Coeff of Chet 14.1, Plt Count 181, MPV 10.1 02/04/20 08:25: WBC 8.2, RBC 3.13 L, Hgb 9.9 L, Hct 31.8 L, MCV 101.6 H, MCH 31.6, MCHC 31.1 L, RDW Std Deviation 53.8 H, RDW Coeff of Chet 14.3, Plt Count 181, MPV 10.2 Current Medications Acetaminophen (Acetaminophen 500 Mg Tablet) 1,000 mg PO Q6 [facility] Last Admin: 02/04/20 06:41 Dose: 1,000 mg Documented by: Docusate Sodium (Docusate Sodium 100 Mg Capsule) 100 mg PO BID [facility] Last Admin: 02/04/20 09:03 Dose: 100 mg Documented by: Ferrous Sulfate (Ferrous Sulfate 325 Mg Tablet) 325 mg PO 1200,1700 [facility] Last Admin: 02/03/20 16:37 Dose: 325 mg Documented by: Magnesium Chloride (Magnesium Chloride 64 Mg Delay Rel.Tablet) 128 mg PO DAILY PRN PRN PRN Reason: Constipation Ondansetron HCl (Ondansetron Odt 4 Mg Tablet) 4 mg PO Q6H PRN PRN PRN Reason: NAUSEA Oxycodone HCl (Oxycodone 5 Mg Tablet) 5 - 10 mg PO Q4H PRN PRN PRN Reason: Pain Score 4-10 Last Admin: 02/04/20 08:43 Dose: 10 mg Documented by: Simethicone (Simethicone 80 Mg Tablet) 80 mg PO TIDPC [facility] Last Admin: 02/04/20 09:03 Dose: 80 mg Documented by: Sodium Chloride (0.9% Saline Lock 10 Ml Syringe) 10 - 40 ml IV UD PRN PRN Reason: SALINE FLUSH Last Admin: 02/03/20 18:39 Dose: 10 ml Documented by: Medical Necessity - Tobacco Use Smoking Status: Former smoker Tobacco Use: Non-smoker Assessment/Plan All Active Problems Abnormal uterine bleeding (AUB) (Acute) Dysmenorrhea (Acute) POD#2 s/p LAVH, bilateral salpingectomy, Postop hemorrhage and transfusion of PRBCs. Hemodynamoically stable, no evidence of further bleeding d/w her routine care ok for d/c home questions answered.
== END 2020-02-04 12:25 | disposition home or self-care (01) ==
LOC: SDC 02-03 09:25 → MS3 02-03 09:25
PROVIDERS: Anesthesiology; Admitting Provider Obstetrics & Gynecology; PCP Internal Medicine; Referring Provider Obstetrics & Gynecology; Visit Provider Obstetrics & Gynecology
PROC: 0UT94ZZ Resection of Uterus, Percutaneous Endoscopic Approach (ICD-10-PCS; CPT 58552; principal; 2020-02-02 08:10)
DX: N94.6 Dysmenorrhea, unspecified (principal); R10.2 Pelvic and perineal pain; Z87.891 Personal history of nicotine dependence; Z20.828 Contact with and (suspected) exposure to other viral communicable diseases; N99.820 Postprocedural hemorrhage of a genitourinary system organ or structure following a genitourinary system procedure
CPT/HCPCS: 00940; 58552; 36415; 36430; 80048; 81025; 82962; 83735; 85025; 85027; 86850; 86900; 86901; 86920; 87635; 88307; 93005; 96374; 96376; 99218; 99251; C9803; J7120; P9016; A4216; G0378; G0463; J2405; U0003

== ENCOUNTER → 2020-02-06 09:49 | Outpatient (CLI) | payer OTHER, SELFPAY ==
[2020-02-02 14:26] VITALS: BMI 31.5
[2020-02-06 12:25] LABS: Anion Gap 6 (5-15); BUN 7 mg/dL (7-18); Calcium,Total 9.8 mg/dL (8.5-10.1); Chloride 104 mmol/L (98-107); Creatinine, Serum 0.64 mg/dL (0.55-1.02); EST Glomerular Filtration Rate 107 mL/min (>60); Est Glom Filt Rate - Afr Amer 130 mL/min (>60); Glucose 94 mg/dL (74-106); Potassium 4.5 mmol/L (3.5-5.1); Sodium Level 139 mmol/L (136-145)
== END ==
PROVIDERS: PCP Internal Medicine; Referring Provider Obstetrics & Gynecology; Visit Provider Obstetrics & Gynecology
DX: G89.18 Other acute postprocedural pain (principal)
CPT/HCPCS: 80048

== ENCOUNTER 2020-03-05 10:22 | Emergency (ER) | payer OTHER, SELFPAY ==
[2020-02-02 14:26] VITALS: BMI 31.5
[2020-03-05 10:25] VITALS: BP 142/95; PULSE 89; RESP 16; TEMP 35.8; O2SAT 100; BMI 30.5
--- NOTE | 2020-03-05 11:12 | CT_ITS ---
STUDY: CT ABDOMEN AND PELVIS WITH CONTRAST REASON FOR EXAM: Female, 45 years old. HYSTERECTOMY IN JANUARY STILL HAVING VAGINAL BLEEDING RADIATION DOSAGE (If Supplied By Facility): CTDIvol = ( 15.32 ) mGy, DLP = ( 882.32 ) mGycm TECHNIQUE: Transaxial images were obtained from the dome of the diaphragm to the symphysis pubis without oral contrast. [id number] 100ML was administered. Sagittal and coronal images were reconstructed. Individualized dose optimization techniques were used for this CT. COMPARISON: None. FINDINGS: The visualized lung bases are unremarkable. The visualized portions of the heart are within normal limits. 2 mm cyst is seen in the anterior aspect of the right lobe of the liver. Normal gallbladder and extrahepatic biliary system. Normal spleen. Normal pancreas. Normal bilateral adrenal glands. Normal right kidney. Normal left kidney. There is a small hiatal hernia. Normal small intestine. Normal colon. There are surgical clips in the region of the appendix consistent with a prior appendectomy. Normal abdominal aorta. Normal inferior vena cava. There is borderline retroperitoneal lymphadenopathy with enlarged nodes no greater than 10mm in the short axis diameter. Normal urinary bladder. There is absence of the uterus consistent with a prior hysterectomy. 2 fluid collections which are well encapsulated are seen in the central and left side of the pelvis at the hysterectomy site. The medial collection measures 2.8 cm x 2.5 cm. The collection to the lateral aspect of the pelvis measures 2.2 cm in by 2.4 cm. There is evidence of small amount of air at the level of the vaginal cuff. There is a small umbilical hernia containing fat. Normal osseous structures. CT/Abdomen/Pelvis W IV Cont ONLY IMPRESSION: Status post hysterectomy with postoperative changes. There are 2 fluid collections seen in the central and left side of the pelvis as described most likely representing postoperative seromas/abscess. Electronically Signed: Stewart Eddy, at 14:14 EST , Service support ,
--- NOTE | 2020-03-05 11:16 | ED.DCSUM_ITS ---
History of Present Illness Chief Complaint: Vag Bld, Preg Informant: Patient Narrative: 45-year-old female approximately 1 month from partial hysterectomy. She has had some bleeding from the cuff and was examined in the office by her surgeon. She has been having some left lower quadrant abdominal pain and was given Augmentin. She states that today is her last dose. The pain has been persistent and was sent to the emergency department by her surgeon for a CT scan. Patient denies any fevers. She denies any diarrhea. She has been having regular bowel movements. No urinary symptoms. The patient surgeon did call me here in the department. Past Medical History - Allergies and Home Meds Allergies/Adverse Reactions: Allergies dihydroergotamine Allergy (Verified 03/05/20 10:25) Chest tightness DAG Allergy (Uncoded 03/05/20 10:25) Chest tightness Primary Care Physician: Tricia Lyon MD [STAFF PHYSICIAN] - Keep [facility] appointment Past Medical History: None Surgical History: hysterectomy Lives: Spouse/ Significant Other Smoking Status: Former smoker Drugs: None Review of Systems General: Denies: Chills, Fever, Sweats Eyes: Denies: Visual changes - bilaterally, Diplopia ENT: Denies: Rhinorrhea, Sore throat Cardiovascular: Denies: Chest pain, Palpitations Respiratory: Denies: Dyspnea, Cough, Dyspnea on exertion Gastrointestinal: Reports: Abdominal pain. Denies: Nausea, Vomiting, Diarrhea, Melena, Hematochezia Genitourinary: Reports: - - Vaginal bleeding post hysterectomy. Denies: Dysuria, Hematuria, Frequency Musculoskeletal: Denies: Back pain, Extremity Pain Skin: Denies: Rash, Wounds Neurological: Denies: Headache, Weakness, Numbness Physical Exam Vital Signs/Narrative: Vital Signs Temp Pulse Resp BP Pulse Ox 03/05/20 10:25 96.4 F L 89 16 142/95 H 100 Inital Vital Signs reviewed: Yes General: Well nourished, Well developed, No Acute Distress Head: Normocephalic, Atraumatic Eyes: Perrl, EOMI ENT: Moist mucous membranes, No rhinorrhea Neck: Supple, Nontender Cardiovascular: Regular rate, Regular rhythm, No murmurs Respiratory: No distress, CTA bilaterally, Chest nontender Abdomen: Soft, Nondistended, Normal bowel sounds, Tender - Tender palpation of the left lower quadrant. No guarding or rebound. Negative for: Guarding, Rebound tenderness Back: Nontender, Normal Inspection Extremities: Nontender, No edema Skin: Normal color, No rash Neurological: Alert, Oriented x3, Cranial nerves II-XII grossly intact, Normal Strength, Normal Sensation Psychological: Normal affect, Normal Mood Diagnostic/Tx/Re-eval Laboratory Last Values WBC 7.2 K/mm3 (4.4-11.0) 03/05/20 11:00 RBC 4.16 M/mm3 (4.2-5.4) L 03/05/20 11:00 Hgb 13.8 g/dL (12.0-15.0) 03/05/20 11:00 Hct 40.9 % (37-47) 03/05/20 11:00 MCV 98.3 fL (81-99) 03/05/20 11:00 MCH 33.2 pg (27.0-32.0) H 03/05/20 11:00 MCHC 33.7 g/dL (32-36) 03/05/20 11:00 RDW Std Deviation 48.3 fl (35.1-43.9) H 03/05/20 11:00 RDW Coeff of Chet 13.3 % (11.6-14.6) 03/05/20 11:00 Plt Count 353 K/mm3 (150-450) 03/05/20 11:00 MPV 9.5 fl (6.2-12.0) 03/05/20 11:00 Immature Gran % (Auto) 0.700 % (0.0-0.9) 03/05/20 11:00 Neut % (Auto) 64.1 % (47-70) 03/05/20 11:00 Lymph % (Auto) 27.6 % (19-41) 03/05/20 11:00 [place] % (Auto) 4.0 % (0-10) 03/05/20 11:00 Eos % (Auto) 2.8 % (0-5) 03/05/20 11:00 Baso % (Auto) 0.8 % (0-1) 03/05/20 11:00 Absolute Neuts (auto) 4.6 X10^3/uL (2.0-7.7) 03/05/20 11:00 Absolute Lymphs (auto) 1.98 X10^3/uL (0.83-4.51) 03/05/20 11:00 Nucleated RBC % 0 % (0-5) 03/05/20 11:00 Sodium 137 mmol/L (136-145) 03/05/20 11:00 Potassium 3.8 mmol/L (3.5-5.1) 03/05/20 11:00 Chloride 105 mmol/L (98-107) 03/05/20 11:00 Carbon Dioxide 25.0 mmol/L (21.0-32.0) 03/05/20 11:00 Anion Gap 7 (5-15) 03/05/20 11:00 BUN 6 mg/dL (7-18) L 03/05/20 11:00 Creatinine 0.68 mg/dL (0.55-1.02) 03/05/20 11:00 Estim Creat Clear Calc 94.01 ml/min 03/05/20 11:00 Est GFR (MDRD) Af Amer 121 mL/min (>60) 03/05/20 11:00 Est GFR (MDRD) Non-Af 100 mL/min (>60) 03/05/20 11:00 BUN/Creatinine Ratio 8.9 RATIO (10-20) L 03/05/20 11:00 Glucose 104 mg/dL (74-106) 03/05/20 11:00 Calcium 9.5 mg/dL (8.5-10.1) 03/05/20 11:00 Total Bilirubin 0.30 mg/dL (0.20-1.00) 03/05/20 11:00 AST 19 U/L (15-37) 03/05/20 11:00 ALT 36 U/L (13-56) 03/05/20 11:00 Alkaline Phosphatase 156 U/L (45-117) H 03/05/20 11:00 Total Protein 8.1 g/dL (6.4-8.2) 03/05/20 11:00 Albumin 4.3 g/dL (3.2-5.0) 03/05/20 11:00 Globulin 3.8 g/dL (2.2-4.2) 03/05/20 11:00 Albumin/Globulin Ratio 1.1 RATIO (0.9-2.4) 03/05/20 11:00 Urine Color Yellow (Yellow) 03/05/20 11:20 Urine Clarity Sl. Cloudy (Clear) 03/05/20 11:20 Urine pH 5.0 (5.0 - 8.0) 03/05/20 11:20 Ur Specific [place] 1.020 (1.002-1.030) 03/05/20 11:20 Urine Protein Negative mg/dl (Negative) 03/05/20 11:20 Urine Glucose (UA) Normal mg/dl (Normal) 03/05/20 11:20 Urine Ketones 5 mg/dl (Negative) H 03/05/20 11:20 Urine Occult Blood 150 /ul (Negative) H 03/05/20 11:20 Urine Nitrite Negative (Negative) 03/05/20 11:20 Urine Bilirubin Negative mg/dL (Negative) 03/05/20 11:20 Urine Urobilinogen Normal mg/dl (Normal) 03/05/20 11:20 Ur Leukocyte Esterase 500 /ul (Negative) H 03/05/20 11:20 Urine RBC 10-25 SEEN /hpf (0-5) 03/05/20 11:20 Urine WBC 25-50 SEEN /hpf (0-5) 03/05/20 11:20 Ur Squamous Epith Cells 0-5 SEEN /hpf (5-10) 03/05/20 11:20 Urine Bacteria 1+ /hpf (None Seen) 03/05/20 11:20 Urine Mucus 1+ /hpf (<or=2+) 03/05/20 11:20 - Medical Decision Making CT of the abdomen pelvis with IV contrast demonstrates 2 loculated fluid collections in the pelvis. The case was discussed with her surgeon. Their recommendation is to continue Augmentin for 7 more days. I can write for some additional Ultram. Patient will follow up with them. The patient appears asymptomatic from a urinary standpoint. I think at this point as she is already on an antibiotic and we will do a urine culture and await those results before adding any other medication and especially in light of no fever normal white count and no urinary symptoms. ED Disposition - Plan for ED Patient: Disposition: Home or Assisted Living Diagnosis: Post-operative pain Prescriptions: Amox/Clavulanate Tablet [Augmentin Tablet] 875 mg PO Q12H #14 tab Prescription Printed traMADol [Ultram] 50 mg PO Q4H PRN PRN 3 Days #20 tab PRN Reason: Pain Prescription Printed Referrals: Tricia Loyn MD [STAFF PHYSICIAN] - Keep [facility] appointment
[2020-03-05 11:18] LABS: Absolute Lymphocyte Count 1.98 X10^3/uL (0.83-4.51); Absolute Neutrophil Count 4.6 X10^3/uL (2.0-7.7); Basophil# 0.06 X10^3/uL; Basophil% 0.8 % (0-1); Eosinophils% 2.8 % (0-5); Hematocrit 40.9 % (37-47); Hemoglobin 13.8 g/dL (12.0-15.0); Lymphocyte # 1.98 X10^3/ul (4.0); Lymphocyte % 27.6 % (19-41); Mean Corp Hgb Conc 33.7 g/dL (32-36); Mean Corpuscular Hgb 33.2 pg (27.0-32.0); Mean Corpuscular Volume 98.3 fL (81-99); Mean Platelet Vol. 9.5 fl (6.2-12.0); Monocyte# 0.29 X10^3/uL; NRBC Flagged by Analyzer 0 % (0-5); Neutrophil % 64.1 % (47-70); Platelet Count 353 K/mm3 (150-450); RBC Distribution Width CV 13.3 % (11.6-14.6); RBC Distribution Width SD 48.3 fl (35.1-43.9); Red Blood Count 4.16 M/mm3 (4.2-5.4); White Blood Count 7.2 K/mm3 (4.4-11.0)
[2020-03-05 11:33] LABS: ALB/GLOB Ratio 1.1 RATIO (0.9-2.4); AST(SGOT) 19 U/L (15-37); Alanine Aminotransfer ALT/SGPT 36 U/L (13-56); Albumin, Serum 4.3 g/dL (3.2-5.0); Alkaline Phosphatase 156 U/L (45-117); Anion Gap 7 (5-15); BUN 6 mg/dL (7-18); BUN/Creat Ratio 8.9 RATIO (10-20); Calcium,Total 9.5 mg/dL (8.5-10.1); Chloride 105 mmol/L (98-107); Creatinine, Serum 0.68 mg/dL (0.55-1.02); EST Glomerular Filtration Rate 100 mL/min (>60); Est Glom Filt Rate - Afr Amer 121 mL/min (>60); Estimated Creatinine Clearance 94.01 ml/min; Globulin 3.8 g/dL (2.2-4.2); Glucose 104 mg/dL (74-106); Potassium 3.8 mmol/L (3.5-5.1); Protein, Total 8.1 g/dL (6.4-8.2); Sodium Level 137 mmol/L (136-145)
[2020-03-05 11:36] LABS: Color, Urine Yellow (Yellow); Glucose, Dipstick Normal (Normal); Ketone-Dipstick 5 mg/dl (Negative); Leukocyte Esterase-Dipstick 500 /ul (Negative); Nitrite-Dipstick Negative (Negative); Occult Blood-Urine 150 /ul (Negative); Protein-Dipstick Negative (Negative); Urine Bilirubin Dipstick Negative (Negative); Urine Clarity Sl. Cloudy (Clear); Urine Urobilinogen Normal (Normal)
[2020-03-05] MEDS: 0.9% Normal Saline 1,000 ML 125 ML IV (11:36)
[2020-03-05 11:52] LABS: Bacteria 1+ /hpf (None Seen); Mucous, Urine 1+ /hpf (<or=2+); Red Blood Cells-Urine 10-25 SEEN /hpf (0-5); Squamous Epithelial Cells - UA 0-5 SEEN /hpf (5-10); White Blood Cells 25-50 SEEN /hpf (0-5)
[2020-03-05 12:22] VITALS: BP 123/83; PULSE 65; RESP 16; O2SAT 96
[2020-03-05 14:16] VITALS: BP 130/90; PULSE 68; RESP 16; O2SAT 98
--- NOTE | 2020-03-05 14:16 | ED.RN ---
IV DC'ED, CATHETER INTACT, SMALL GAUZE DRESSING PLACED. DISCHARGE INSTRUCTIONS GIVEN TO AND REVIEWED WITH PATIENT, PATIENT DENIES QUESTIONS OR CONCERNS AND VOICES UNDERSTANDING OF DISCHARGE INSTRUCTIONS. PT AMBULATES OUT OF ROOM WITHOUT DIFFICULTY.
== END 2020-03-05 14:17 | disposition home or self-care (01) ==
PROVIDERS: Emergency Provider Emergency Medicine; PCP Internal Medicine
DX: G89.18 Other acute postprocedural pain (principal); N93.9 Abnormal uterine and vaginal bleeding, unspecified; Z90.710 Acquired absence of both cervix and uterus; Z87.891 Personal history of nicotine dependence
CPT/HCPCS: 74177; 80053; 81001; 85025; 87086; 87088; 99283; J7030; Q9967; A4216

== ENCOUNTER 2021-02-13 11:49 | Emergency (ER) | payer OTHER, SELFPAY ==
[2021-02-13 11:50] VITALS: BP 163/94; PULSE 84; RESP 16; TEMP 36.7; O2SAT 100; BMI 30.4
--- NOTE | 2021-02-13 12:03 | EDS_ITS ---
HPI History of Present Illness Chief Complaint: Headache Detail of Chief Complaint: Headache that started yesterday Informant: patient Narrative Narrative: Patient presents with a headache that she woke up with yesterday morning and it was dull and just felt like she needed some Tylenol. Patient states the headache then gradually progressed over time to become more severe involve the entire head. She describes a sharp stabbing pain intermittently to the right side of her head. She denies photophobia. She did have 1 episode of vomiting today but really has not felt nauseated otherwise. She denies recent illness. She denies trauma to her head. She has been immunized against COVID- 19. Patient used to have migraines but has not had one for over 20 years she states. She denies any carbon monoxide exposures. Nobody else at home has headaches. PFSH PFSH Home Medications cholecalciferol (vitamin D3) [Vitamin D3] 0 mcg PO DAILY 02/13/21 [History Last Taken Unknown] hydrocodone-acetaminophen 1 tab PO Q4H PRN PRN 2 Days #10 tablet 02/13/21 [Rx Last Taken Unknown] Allergy/AdvReac Type Severity Reaction Status Date / Time dihydroergotamine Allergy Chest Verified 02/13/21 11:52 tightness DAG Allergy Chest Uncoded 02/13/21 11:52 tightness Surgical History (Updated 02/13/21 @ 11:57 by Carolynn Pickering) History of hysterectomy Social History Smoking Status: Never smoker ROS ROS ED Constitutional Constitutional ED: Reports systems reviewed and no addt'l complaints, except as documented; Denies body ache(s), change in weight or chills Eyes Eyes: Denies acute decrease in peripheral vision, change in vision, double vision or loss of vision ENT ENT ED: Reports none; Denies ear pain, lip swelling, loss taste/smell, neck pain, otalgia or sore throat Cardiovascular Cardiovascular: Reports none; Denies abdominal pain, chest pain with activity, leg edema, lightheadedness, palpitations, rapid heart rate or syncope Respiratory/Chest Respiratory/Chest: Reports none; Denies change in mental status, dry cough, dyspnea, hemoptysis, shortness of breath at rest or shortness of breath with exertion Gastrointestinal Gastrointestinal: Reports none and vomiting; Denies abdominal pain, change in stool character, diarrhea, hematemesis, hematochezia, melena or rectal bleeding Genitourinary Genitourinary ED: Reports none; Denies abdominal discomfort, anuria, dysuria, genital pain or polyuria Musculoskeletal Musculoskeletal: Reports none; Denies arthralgias, back pain, difficulty walking, extremity pain, muscle weakness or myalgias Integumentary Reports none; Denies abscess or rash Neurologic Neurologic: Reports none and headache(s); Denies abnormal gait, confusion, focal weakness, frequent falls, loss of vision, numbness, paresthesias, radicular pain, vertigo or weakness Psychiatric Psychiatric: Reports systems reviewed and no addt'l complaints, except as documented and none; Denies behavioral changes, confusion, difficulty concentrating, hallucinations, suicidal ideation, tactile hallucinations or visual hallucinations Endocrine Endocrinology: Denies none, cold intolerance, excessive sweating, fatigue or heat intolerance Hematologic/Lymphatic Hematologic/Lymphatic: Reports none; Denies anemia, easy bleeding or easy bruising Allergic/Immunologic Allergic/Immunologic ED: Denies as per HPI, none, lip swelling, mouth swelling, throat swelling, tongue swelling or hives EXAM Physical Exam Const Vital Signs: 02/13/21 11:50 02/13/21 13:52 02/13/21 14:55 Temperature 98.1 F Temperature Source Temporal Pulse Rate 84 65 Respiratory Rate 16 16 16 Blood Pressure 163/94 H 129/89 H Blood Pressure Mean 117 102 Pulse Ox 100 100 Oxygen Delivery Method Room Air Room Air Positive well nourished and well developed General Appearance ED: well developed and NAD HEENT Reports TM's clear and moist mucous membranes normocephalic and atraumatic; Negative for trauma or tenderness Tympanic Membrane ED: Yes TM's clear Eyes PERRL and EOMs intact bilaterally General Eye ED: Negative for pale conjunctiva or scleral icterus Neck no lymphadenopathy, supple and no JVD General: Negative for tenderness Chest Wall inspection of chest normal and palpation of chest normal Chest: Negative for tenderness Resp normal respiratory effort and clear to auscultation bilaterally Effort and Inspection: Negative for respiratory distress or pain with movement Auscultation: Negative for rhonchi, wheezes or diminished lung sounds Cardio regular rate, regular rhythm, S1 normal heart sound, S2 normal heart sound and no murmurs Peripheral Pulses: pulses 2+ throughout GI normal to inspection, nondistended, normoactive bowel sounds, soft to palpation, non-tender, non-distended and no masses Back/Spine no CVA tenderness and no thoracic nor lumbar tenderness Extremity normal to inspection General Extremety ED: Negative for edema General Extremity: Negative for edema Neuro oriented x3, CN's II-XII intact bilaterally, no sensory deficits noted and gait normal Neuro Narrative: Finger-nose and heel madera testing within normal limits, negative Romberg, negative pronator drift, fundi benign Sensorium / Orientation: awake, alert, oriented to person, oriented to place and oriented to time Motor Exam: strength 5/5 throughout and strength abnormal Psych mental status grossly normal Skin no rashes or lesions noted and no wounds MDM MDM MDM Narrative Medical decision making narrative: IV line established on arrival. Patient was given a liter normal saline fluid bolus as well as Reglan, Benadryl, and T oradol. She had no pain relief with this. At this point a CTA of the head and neck obtained was read by radiology as nothing acute. Patient was given 4 mg of morphine and 4 mg of Zofran IV and Decadron 10 mg IV. Patient states that her headache is better as far as the sharp pain is essentially gone and has not had in about an hour but still has a lot of pressure in her head. This point the et iology of her headache is unclear. She is comfortable going home. There is no evidence of temporal arteritis. No evidence of increased intracranial pressure on CT. She has not had any carbon monoxide exposures. Patient advised to return if worsening pain, fever, vomiting, difficulty with balance or speech, or condition should worsen anyway. She will be given a prescription for few Reinbeck for pain. Radiography Diagnostic Testing: Clinical Impression(s) from Imaging Studies Head/Neck CTA 02/13/21 13:20 IMPRESSION: Normal CTA Head and neck with contrast. Electronically Signed: Stewart Eddy MD at 13:42 EST , Service support , Discharge Plan Triage Chief Complaint: Headache ED Provider: Richy Storm Dx/Rx/DC Orders Clinical Impression: Cephalalgia Instructions: ED Headache Unspecified Prescriptions: New hydrocodone-acetaminophen [hydrocodone-acetaminophen] 1 TABLET tablet 1 tab PO Q4H PRN PRN (Reason: Pain) 2 Days Qty: 10 RF: 0 No Action cholecalciferol (vitamin D3) [Vitamin D3] 10 mcg (400 unit) Capsule 0 mcg PO DAILY RF: 0 Primary Care Provider: Geri Pradhan Referrals: Geri Prdahan MD [Primary Care Provider] - 3-5 Days Disposition Disposition: Home, Self Care
[2021-02-13] MEDS: Ketorolac 30 MG/ML Syringe IV (12:29)
[2021-02-13] MEDS: Metoclopramide 10 MG/2 ML Vial IV (12:29)
[2021-02-13] MEDS: DiphenhydrAMINE 50 MG/ML Syringe 25 MG IV (12:29)
--- NOTE | 2021-02-13 13:20 | CT_ITS ---
STUDY: CTA HEAD AND NECK WITH CONTRAST REASON FOR EXAM: Female, 46 years old. Headache RADIATION DOSAGE (If Supplied By Facility): CTDIvol = ( 29.21 ) mGy, DLP = ( 1496.15 ) mGycm TECHNIQUE: CT angiography was performed with a multi-detector CT scanner. Data acquisition was obtained from the skull base through the vertex following intravenous administration of IV 100mL [id number]. MIP images were reconstructed from the axial data set. Post-processing of the angiographic images was performed, with multiplanar reformation and 3D reconstruction. Individualized dose optimization techniques were used for this CT. COMPARISON: No relevant priors. FINDINGS: Normal bilateral petrous carotid arteries. Normal right cavernous carotid artery with a normal supraclinoid bifurcation. Normal left cavernous carotid artery with a normal supraclinoid bifurcation. Normal right A1 segments of the anterior cerebral artery. Normal left A1 segments of the anterior cerebral artery. Normal intact anterior communicating artery (ACOM). Normal bilateral A2 segments of the anterior cerebral arteries. Normal right M1 and M2 segments of the middle cerebral arteries, with a normal M1 bifurcation. Normal left M1 and M2 segments of the middle cerebral arteries, with a normal M1 bifurcation. Normal right posterior communicating artery (PCOM). Normal left posterior communicating artery (PCOM). Normal bilateral vertebral arteries. Normal basilar artery with a normal basilar bifurcation. The visualized bilateral superior cerebellar (SCA) arteries are normal. Normal bilateral P1, P2 and visualized P3 segments of the posterior cerebral arteries. There is no demonstrated aneurysm of the [place] of [place]. There is no demonstrated abnormality of the visualized brain. Tiny cysts are seen in the right lobe of the thyroid. AORTIC ARCH: Normal visualized aortic arch. Normal origins of the brachiocephalic, left common carotid, and left subclavian arteries. RIGHT CAROTID ARTERIES: Normal right common carotid artery (CCA). Normal right common carotid bulb. Normal origin of the right internal carotid (ICA) artery without a hemodynamically significant stenosis. Normal visualized cervical portion of the right internal carotid artery. Normal origin of the right external carotid artery (ECA). LEFT CAROTID ARTERIES: Normal left common carotid artery (CCA). Normal left common carotid bulb. Normal origin of the left internal carotid (ICA) artery without a hemodynamically significant stenosis. Normal visualized cervical portion of the left internal carotid artery. Normal origin of the left external carotid artery (ECA). VERTEBRAL ARTERIES: There is enhancement within the bilateral vertebral arteries with a small left vertebral artery, and a dominant right vertebral artery. CT/CTA Head AND Neck W/ Contrast IMPRESSION: Normal CTA Head and neck with contrast. Electronically Signed: Stewart Eddy MD at 13:42 EST , Service support ,
[2021-02-13 13:52] VITALS: RESP 16
[2021-02-13] MEDS: Ondansetron 4 MG/2 ML Vial IV (14:19)
[2021-02-13] MEDS: dexAMETHasone 10 MG/ML Vial IV (14:19)
[2021-02-13] MEDS: Morphine 4 MG/ML Syringe IV (14:19)
[2021-02-13 14:55] VITALS: BP 129/89; PULSE 65; RESP 16; O2SAT 100
== END 2021-02-13 15:25 | disposition home or self-care (01) ==
PROVIDERS: Emergency Provider Emergency Medicine; PCP Internal Medicine
DX: R51.9 Headache, unspecified (principal); R11.10 Vomiting, unspecified; Z90.710 Acquired absence of both cervix and uterus
CPT/HCPCS: 70496; 70498; 96374; 96375; 99284; J7030; Q9967; A4216; J2405